=== PATIENT | female | born 1975 | race Caucasian/White ===

== ENCOUNTER 2021-01-15 15:10 | Inpatient (IN) | payer OTHER ==
[2021-01-15] MEDS ORDERED: ACETAMINOPHEN 325 MG TABLET (FP) PO PRN (15:54)
[2021-01-15] MEDS ORDERED: MAG HYDROX/AL HYDROX/SIMETH 30 ML UNIT-DOSE CUP PO PRN (15:54)
[2021-01-15] MEDS ORDERED: NICOTINE 10 MG CARTRIDGE (INHALER) IH PRN (15:54)
[2021-01-15] MEDS ORDERED: MAGNESIUM CITRATE 300 ML BOTTLE PO PRN (15:54)
[2021-01-15] MEDS ORDERED: ONDANSETRON *ODT* 4 MG TABLET SL PRN (15:54)
[2021-01-15] MEDS ORDERED: diazePAM 5 MG TABLET PO PRN (15:54)
[2021-01-15] MEDS ORDERED: MENTHOL/PHENOL 1 EACH UD MM PRN (15:54)
[2021-01-15] MEDS ORDERED: MAGNESIUM HYDROX 2400MG/30ML ORAL SUSPENSION 30 ML CUP PO PRN (15:54)
[2021-01-15 16:57] VITALS: BMI 21.7
[2021-01-15] MEDS: diazePAM 5 MG TABLET PO SCH ×2 (21:09→22:50)
[2021-01-15] MEDS: hydrOXYzine PAMOATE 25 MG CAPSULE (FP) PO SCH ×2 (21:09→22:50)
[2021-01-15] MEDS: METHOCARBAMOL 500 MG TABLET PO PRN (21:09)
[2021-01-15] MEDS: PRENATAL VITAMINS W/ FOLIC ACID TABLET (FP) PO SCH (21:10)
[2021-01-15] MEDS: NICOTINE 14 MG/24 HOURS TOPICAL PATCH TD SCH (21:16)
[2021-01-15] MEDS: MELATONIN 5 MG TABLETS PO SCH (22:49)
[2021-01-15] MEDS: THIAMINE HCL 100 MG TABLET (FP) PO SCH (22:50)
[2021-01-16] MEDS: diazePAM 5 MG TABLET PO SCH ×4 (06:06→22:59)
[2021-01-16] MEDS: hydrOXYzine PAMOATE 25 MG CAPSULE (FP) PO SCH ×5 (06:07→17:48)
[2021-01-16] MEDS: METHOCARBAMOL 500 MG TABLET PO PRN ×2 (09:04→17:52)
[2021-01-16] MEDS: PRENATAL VITAMINS W/ FOLIC ACID TABLET (FP) PO SCH (09:04)
[2021-01-16] MEDS: IBUPROFEN 400 MG TABLET (FP) PO PRN ×2 (09:05→15:45)
[2021-01-16] MEDS: NICOTINE 14 MG/24 HOURS TOPICAL PATCH TD SCH (09:05)
[2021-01-16 10:41] LABS: HEMATOCRIT 39.3 % (32.4-45.2); HEMOGLOBIN 13.5 GM/dL (10.7-15.3); MCH 32.6 pg (25.7-33.7); MCHC 34.3 g/dl (32.0-36.0); MEAN CELL VOLUME 94.9 fl (80-96); PLATELET COUNT 314 10^3/uL (134-434); RBC 4.14 M/mm3 (3.60-5.2); RDW 14.8 % (11.6-15.6); WHITE BLOOD COUNT 5.1 K/mm3 (4.0-10.0)
[2021-01-16] MEDS: CITALOPRAM HYDROBROMIDE 20 MG TABLET PO SCH (10:42)
[2021-01-16] MEDS: ACETAMINOPHEN 325 MG TABLET (FP) PO PRN ×2 (10:43→16:46)
[2021-01-16 11:22] LABS: CALCIUM 9.4 mg/dL (8.5-10.1)
[2021-01-16 11:23] LABS: ALBUMIN 3.7 g/dl (3.4-5.0)
[2021-01-16 11:26] LABS: CREATININE 0.6 mg/dL (0.55-1.3)
[2021-01-16 11:27] LABS: BILIRUBIN,TOTAL 0.5 mg/dL (0.2-1); TOT PROT 7.3 g/dl (6.4-8.2)
[2021-01-16] MEDS ORDERED: diazePAM 5 MG TABLET PO PRN (16:03)
[2021-01-16] MEDS: MELATONIN 5 MG TABLETS PO SCH (22:59)
[2021-01-16] MEDS: THIAMINE HCL 100 MG TABLET (FP) PO SCH (22:59)
[2021-01-16] MEDS: traZODone HCL 50 MG TABLET (FP) PO SCH (22:59)
[2021-01-17] MEDS ORDERED: diazePAM 5 MG TABLET PO PRN (00:01)
[2021-01-17] MEDS: hydrOXYzine PAMOATE 25 MG CAPSULE (FP) PO SCH ×6 (00:17→22:17)
[2021-01-17] MEDS: diazePAM 5 MG TABLET PO SCH ×3 (05:39→22:18)
[2021-01-17] MEDS: ACETAMINOPHEN 325 MG TABLET (FP) PO PRN ×2 (05:41→15:42)
[2021-01-17] MEDS: METHOCARBAMOL 500 MG TABLET PO PRN ×3 (05:45→20:49)
[2021-01-17] MEDS: IBUPROFEN 400 MG TABLET (FP) PO PRN ×3 (08:01→22:19)
[2021-01-17] MEDS: CITALOPRAM HYDROBROMIDE 20 MG TABLET PO SCH (10:07)
[2021-01-17] MEDS: PRENATAL VITAMINS W/ FOLIC ACID TABLET (FP) PO SCH (10:07)
[2021-01-17] MEDS: NICOTINE 14 MG/24 HOURS TOPICAL PATCH TD SCH (10:08)
[2021-01-17] MEDS: BISMUTH SUBSALICYLATE 524 MG/30 ML PO PRN (10:08)
[2021-01-17] MEDS: THIAMINE HCL 100 MG TABLET (FP) PO SCH (22:18)
[2021-01-17] MEDS: traZODone HCL 50 MG TABLET (FP) PO SCH (22:18)
[2021-01-18] MEDS: diazePAM 5 MG TABLET PO SCH ×2 (05:54→17:11)
[2021-01-18] MEDS: hydrOXYzine PAMOATE 25 MG CAPSULE (FP) PO SCH ×5 (05:54→22:16)
[2021-01-18] MEDS: IBUPROFEN 400 MG TABLET (FP) PO PRN ×3 (07:25→20:06)
[2021-01-18] MEDS: METHOCARBAMOL 500 MG TABLET PO PRN ×2 (07:25→13:41)
[2021-01-18] MEDS: ACETAMINOPHEN 325 MG TABLET (FP) PO PRN ×2 (09:25→17:12)
[2021-01-18] MEDS: PRENATAL VITAMINS W/ FOLIC ACID TABLET (FP) PO SCH (10:44)
[2021-01-18] MEDS: CITALOPRAM HYDROBROMIDE 20 MG TABLET PO SCH (10:45)
[2021-01-18] MEDS: NICOTINE 14 MG/24 HOURS TOPICAL PATCH TD SCH (10:45)
[2021-01-18] MEDS ORDERED: IBUPROFEN 400 MG TABLET (FP) PO PRN (11:16)
[2021-01-18] MEDS: THIAMINE HCL 100 MG TABLET (FP) PO SCH (22:15)
[2021-01-18] MEDS: traZODone HCL 50 MG TABLET (FP) PO SCH (22:16)
[2021-01-19] MEDS: hydrOXYzine PAMOATE 25 MG CAPSULE (FP) PO SCH ×5 (05:34→22:33)
[2021-01-19] MEDS ORDERED: diazePAM 5 MG TABLET PO ONE (06:00)
[2021-01-19] MEDS: CITALOPRAM HYDROBROMIDE 20 MG TABLET PO SCH (10:29)
[2021-01-19] MEDS: PRENATAL VITAMINS W/ FOLIC ACID TABLET (FP) PO SCH (10:29)
[2021-01-19] MEDS: METHOCARBAMOL 500 MG TABLET PO PRN ×2 (10:30→17:19)
[2021-01-19] MEDS: NICOTINE 14 MG/24 HOURS TOPICAL PATCH TD SCH (10:32)
[2021-01-19] MEDS: IBUPROFEN 400 MG TABLET (FP) PO PRN ×2 (10:32→18:47)
[2021-01-19] MEDS: ACETAMINOPHEN 325 MG TABLET (FP) PO PRN ×2 (13:36→22:31)
[2021-01-19] MEDS: THIAMINE HCL 100 MG TABLET (FP) PO SCH (22:33)
[2021-01-19] MEDS: traZODone HCL 50 MG TABLET (FP) PO SCH (22:33)
[2021-01-20] MEDS: hydrOXYzine PAMOATE 25 MG CAPSULE (FP) PO SCH ×5 (07:07→22:46)
[2021-01-20] MEDS: METHOCARBAMOL 500 MG TABLET PO PRN ×2 (08:03→21:14)
[2021-01-20] MEDS: ACETAMINOPHEN 325 MG TABLET (FP) PO PRN ×2 (10:26→17:56)
[2021-01-20] MEDS: NICOTINE 14 MG/24 HOURS TOPICAL PATCH TD SCH (10:26)
[2021-01-20] MEDS: CITALOPRAM HYDROBROMIDE 20 MG TABLET PO SCH (10:26)
[2021-01-20] MEDS: PRENATAL VITAMINS W/ FOLIC ACID TABLET (FP) PO SCH (10:26)
[2021-01-20] MEDS: IBUPROFEN 400 MG TABLET (FP) PO PRN (13:16)
[2021-01-20] MEDS: traZODone HCL 50 MG TABLET (FP) PO SCH (22:46)
[2021-01-20] MEDS: THIAMINE HCL 100 MG TABLET (FP) PO SCH (22:46)
[2021-01-21] MEDS: hydrOXYzine PAMOATE 25 MG CAPSULE (FP) PO SCH ×3 (06:59→14:09)
[2021-01-21] MEDS: CITALOPRAM HYDROBROMIDE 20 MG TABLET PO SCH (10:42)
[2021-01-21] MEDS: IBUPROFEN 400 MG TABLET (FP) PO PRN (10:44)
[2021-01-21] MEDS: PRENATAL VITAMINS W/ FOLIC ACID TABLET (FP) PO SCH (10:55)
[2021-01-21] MEDS: NICOTINE 14 MG/24 HOURS TOPICAL PATCH TD SCH (11:30)
[2021-01-21 12:59] VITALS: BP 98/58; PULSE 80; TEMP 97.8
[2021-01-21] MEDS: METHOCARBAMOL 500 MG TABLET PO PRN (14:09)
[2021-01-21] MEDS: BISMUTH SUBSALICYLATE 524 MG/30 ML PO PRN (14:10)
[2021-01-21] MEDS: ACETAMINOPHEN 325 MG TABLET (FP) PO PRN (14:13)
== END 2021-01-21 15:00 | disposition home or self-care (01) | DRG 773 ==
LOC: YASAS 15:10 → Y6N 17:58
PROVIDERS: ADMIT Allergy & Immunology; ATTEND Allergy & Immunology
PROC: HZ2ZZZZ Detoxification Services for Substance Abuse Treatment (ICD-10-PCS; principal; 2021-01-15)
DX: F10.230 Alcohol dependence with withdrawal, uncomplicated (principal); F11.10 Opioid abuse, uncomplicated; F13.10 Sedative, hypnotic or anxiolytic abuse, uncomplicated; F17.210 Nicotine dependence, cigarettes, uncomplicated; F19.24 Other psychoactive substance dependence with psychoactive substance-induced mood disorder; F19.282 Other psychoactive substance dependence with psychoactive substance-induced sleep disorder; F33.9 Major depressive disorder, recurrent, unspecified; F41.9 Anxiety disorder, unspecified; F43.10 Post-traumatic stress disorder, unspecified; R00.0 Tachycardia, unspecified; M79.7 Fibromyalgia; Z62.810 Personal history of physical and sexual abuse in childhood; Z91.51 Personal history of suicidal behavior
CPT/HCPCS: 36415; 80053; 81025; 85027; 86780; C9803; U0003; U0005